=== PATIENT | male | born 1990 | race Caucasian/White ===

== ENCOUNTER 2021-04-04 13:49 | Emergency (ER) | payer OTHER ==
[~2021-04-04] VITALS: Ht 177.8 cm; Wt 95.3 kg
[2021-04-04 15:15] LABS: HEMOGLOBIN 15.6 gm/dl (14.0-17.5); RED BLOOD COUNT 5.09 M/UL (4.20-5.50); WHITE BLOOD COUNT 4.3 K/UL (4.5-11.0)
[2021-04-04 15:47] LABS: BUN/CREATININE RATIO 10 (0-10)
[2021-04-04] MEDS ORDERED: PROAIR HFA8.5 GM INH (16:04)
[2021-04-04] MEDS ORDERED: ONDANSETRON ODT4 MG SL (16:04)
[2021-04-04] MEDS ORDERED: BENZONATATE200 MG PO (16:04)
== END 2021-04-04 18:15 | disposition home or self-care (01) ==
LOC: ER1 13:49
PROVIDERS: Physician Assistant
DX: U07.1 COVID-19 (principal); F17.200 Nicotine dependence, unspecified, uncomplicated
CPT/HCPCS: 71045; 80053; 85025; 99283; J2405